=== PATIENT | female | born 1970 | race Caucasian/White ===

== ENCOUNTER 2017-09-20 11:03 | Emergency (ER) | payer MEDICAID, OTHER ==
[~2017-09-20] VITALS: Ht 157.5 cm; Wt 78.0 kg
[~2017-09-20 11:03] MED LIST: AZIT250T13 PO; D-ME473S2 PO
[2017-09-20 11:05] VITALS: Ht 157.5 cm; Wt 78.0 kg
[2017-09-20] MEDS ORDERED: ONDANSETRON (ODT) 4 MG TAB ODT STA (12:10)
[2017-09-20] MEDS ORDERED: MECLIZINE 12.5 MG TAB PO ONE (12:30)
--- NOTE | 2017-09-20 13:19 | ERD ---
ER Documentation Chief Complaint Chief Complaint dizziness and nausea today HPI 38-year-old female states that she woke up this morning with vertiginous dizziness with nausea. The patient describes as a room spinning, with associated nausea but no vomiting. She describes that the pain dizziness is worse when she gets up or turns her head to either direction. She reports that she has had this similar episode about a year ago but is not sure how it resolves. She has not had any headaches, visual changes, paresthesias, motor weakness. Patient denies ear pain, cough, congestion or URI symptoms. ROS All systems reviewed and are negative except as per history of present illness. Medications Home Meds Active Scripts Ondansetron (Ondansetron Odt) 4 Mg Tab.rapdis, 4 MG PO Q6H Y for NAUSEA AND/OR VOMITING, #10 TAB Prov:PITO ARMENTA PA-C 09/20/17 Meclizine Hcl* (Antivert*) 12.5 Mg Tab, 12.5 MG PO Q6H Y for DIZZINESS, #20 TAB Prov:PITO ARMENTA PA-C 09/20/17 Reported Medications Dextromethorphan Hb-Promethazine Hcl* (Promethazine DM* Syrup) 473 Ml Syrup, 473 ML PO 01/03/13 Azithromycin* (Azithromycin*) 250 Mg Tablet, 250 MG PO DAILY 01/03/13 Allergies Allergies: Coded Allergies: No Known Allergy (Unverified , 09/20/17) PMhx/Soc History of Surgery: Yes (tumor removal ( finger)) Hx Alcohol Use: No Hx Substance Use: No Hx Tobacco Use: No Smoking Status: Never smoker Physical Exam Vitals Vital Signs Date Time Temp Pulse Resp B/P Pulse Ox O2 Delivery O2 Flow Rate FiO2 09/20/17 11:05 98.1 88 18 140/72 99 Physical Exam General: Well-developed, well-nourished. The patient appears in no acute distress. HEENT: Head is normocephalic, atraumatic. No scleral icterus. P Neck: Supple. Nontender. Lungs: Clear to auscultation. Normal air movement. Heart: Regular rate and rhythm. S1 and S2 are normal. No murmurs, gallops, or rubs. Abdomen: Soft, nontender, nondistended. Bowel sounds are normoactive. Extremities: No clubbing or cyanosis. Normal pulses. Moving extremities x 4. No weakness. Neuro: M/S: Alert and oriented Face: EOMI, CN II-XII grossly intact Motor: Normal strength throughout Sensation: Normal sensation throughout Speech: Normal Cerebel: Normal coordination Normal gait Normal finger to nose DTR: 2+ and symmetric upper/lower extremities eurologic: Alert and oriented 3. No focal deficits. Skin: Normal turgor. No rash or lesions. Results 24 hrs Current Medications Medications (Trade) Dose Ordered Sig/[place] Route PRN Reason Start Time Stop Time Status Last Admin Dose Admin Ondansetron HCl (Zofran Odt) 4 mg ONCE STAT ODT 09/20/17 12:10 09/20/17 12:12 DC 09/20/17 12:21 Meclizine HCl (Antivert) 25 mg ONCE ONCE PO 09/20/17 12:30 09/20/17 12:31 DC 09/20/17 12:21 DIAGNOSTIC IMAGING REPORT Patient: YSABEL JOHNSON : 1970 Age: 46 Sex: F MR #: [id number] DOS: 09/20/17 1210 Ordering MD: PITO ARMENTA PA-C Location: [facility] Room/Bed: PROCEDURE: CT Brain without. CLINICAL INDICATION: Vertigo. TECHNIQUE: A CT of the brain was performed on multidetector high-resolution CT scanner utilizing axial sections from the skull base through the vertex without contrast. The scan was reviewed in soft tissue brain and high frequency resolution bone algorithm windows. Images were reviewed on a high- resolution PACS workstation. One or more the following does reduction techniques were utilized: Automated exposure control, adjustment of the mA/ or kV according to patient's size, or use of iterative reconstruction technique. The exam CTDI = 45.01 mGy and the DLP = 720.23 mGy-cm. DICOM images are available. COMPARISON: None available. FINDINGS: The ventricles and sulci are age-appropriate. There is no intracranial hemorrhage, mass effect or midline shift. No abnormal intra-axial or extra- axial fluid collections are seen. The benton/white matter differentiation is preserved. No acute skull abnormality is noted. The visualized paranasal sinuses are essentially clear. IMPRESSION: 1. No acute intracranial hemorrhage, transcortical infarction or mass effect. RPTAT: HH .Theodora Forte MD, MD Date Time Electronically viewed and signed by .Theodora Forte MD, MD on 09/20/2017 13: 39 .N/ Procedures/MDM ED COURSE: EKG: Reviewed by Dr. Mendez Rate/Rhythm: Normal Sinus Rhythm, rate of 64 QRS, ST, T-waves: No changes consistent w/ acute ischemia Impression: No evidence of ischemia or arrhythmia MEDICAL DECISION MAKIN-year-old female presents with dizziness with nausea, the patient describes the dizziness symptoms as a vertiginous as a room is spinning around her. Appears to be positional however the patient has had recurrent vertigo without any brain imaging, the patient had a CT scan of the head, as well as an EKG. CT head is unremarkable. EKG shows normal sinus rhythm. Patient does not show any focal neurologic changes, and her history is not concerning for TIA, stroke , meningitis, encephalitis, acute encephalopathy. Patient will be given meclizine and Zofran, and she is stable for outpatient management. Differentials include benign positional vertigo, labyrinthitis, post viral syndrome, infectious origin including meningitis, encephalitis, intracranial hemorrhage, mass-effect. Departure Diagnosis: Primary Impression: Vertigo Condition: PITO Amador PA-C Sep 20, 2017 13:19
--- NOTE | 2017-09-20 13:39 | RADRPT ---
PROCEDURE: CT Brain without. CLINICAL INDICATION: Vertigo. TECHNIQUE: A CT of the brain was performed on multidetector high-resolution CT scanner utilizing a xial sections from the skull base through the vertex without contrast. The scan was reviewed in sof t tissue brain and high frequency resolution bone algorithm windows. Images were reviewed on a high -resolution PACS workstation. One or more the following does reduction techniques were utilized: Aut omated exposure control, adjustment of the mA/ or kV according to patient's size, or use of iterativ e reconstruction technique. The exam CTDI = 45.01 mGy and the DLP = 720.23 mGy-cm. DICOM images are available. COMPARISON: None available. FINDINGS: The ventricles and sulci are age-appropriate. There is no intracranial hemorrhage, mass effect or mi dline shift. No abnormal intra-axial or extra-axial fluid collections are seen. The benton/white adarsh er differentiation is preserved. No acute skull abnormality is noted. The visualized paranasal sinus es are essentially clear. IMPRESSION: 1. No acute intracranial hemorrhage, transcortical infarction or mass effect. RPTAT: HH .Theodora Forte MD, MD Date Time Electronically viewed and signed by .Theodora Forte MD, MD on 09/20/2017 13:39 .N/
[2017-09-20] MEDS ORDERED: ONDA4TAB14 PO (13:45)
[2017-09-20] MEDS ORDERED: MECL12.574 PO (13:45)
== END 2017-09-20 14:46 | disposition home or self-care (01) ==
LOC: FTE 11:03
DX: R42 Dizziness and giddiness (principal); R11.0 Nausea
CPT/HCPCS: 70450; 93005; Z7610